=== PATIENT | female | born 1945 | race Caucasian/White ===

== ENCOUNTER 2023-04-30 18:04 | Inpatient (IN) | payer MEDICARE, BC ==
[~2023-04-30 18:04] MED LIST: IV FLUID CONTINUATION 1,000 ML IV ONE; LACTATED RINGERS 1,000 ML IV ONE
[2023-04-30] MEDS ORDERED: SODIUM CHLORIDE 0.9% 1,000 ML IV ONE (18:54)
[2023-04-30] MEDS ORDERED: KETOROLAC 15 MG/ML 1 ML VIAL IVP STA (18:54)
[2023-04-30] MEDS ORDERED: ONDANSETRON 4 MG/2 ML VIAL IVP STA (18:54)
[2023-04-30] MEDS ORDERED: FAMOTIDINE 20 MG/2 ML VIAL IV STA (18:54)
--- NOTE | 2023-04-30 18:56 | ED ---
General Adult HPI - General Chief complaint: Abdominal Pain Stated complaint: abd pain Time Seen by Provider: 04/30/23 18:25 Source: patient, RN notes reviewed Mode of arrival: ambulatory Limitations: no limitations - History of Present Illness Initial comments: 77-year-old female with a past medical history significant for CVA and hypertension presents to the emergency department the chief complaint of abdominal pain. Patient reports that her abdominal pain started at approximately 11 AM today. She describes her pain as sharp and generalized. She denies any known fevers however has felt chills on and off all day. She is complaining of accompanying symptoms of nausea and vomiting. She denies any sick contacts. She did not receive Covid informed vaccines this year. Denies chest pain, cough, palpitations, shortness of breath, melena, hematochezia, dysuria, hematuria. She reports that she is currently on plavix - Related Data Home Medications Medication Instructions Recorded Confirmed Atorvastatin [Lipitor] 40 mg PO DAILY 04/30/23 04/30/23 Cholecalciferol [Vitamin D3 (25 25 mcg PO DAILY 04/30/23 04/30/23 Mcg = 1000 Iu)] Clopidogrel [Plavix] 75 mg PO DAILY 04/30/23 04/30/23 Magnesium 250 mg PO DAILY 04/30/23 04/30/23 Multivitamins, Thera [Multivitamin 1 tab PO DAILY 04/30/23 04/30/23 (formulary)] Mcclelland-3 Fatty Acids [Mcclelland-3] 1,000 mg PO DAILY 04/30/23 04/30/23 Vitamin E (Dl,Tocopheryl Acet) 400 unit PO DAILY 04/30/23 04/30/23 [Vitamin E (400 Iu = 180 mg)] carvediloL [Coreg] 12.5 mg PO BID 04/30/23 04/30/23 ramipriL [Altace] 10 mg PO BID 04/30/23 04/30/23 Allergies Allergy/AdvReac Type Severity Reaction Status Date / Time No Known Allergies Allergy Verified 04/30/23 18:41 Review of Systems ROS Statement: Those systems with pertinent positive or pertinent negative responses have been documented in the HPI. ROS Other: All systems not noted in ROS Statement are negative. Past Medical History Past Medical History: CVA/TIA, Hypertension History of Any Multi-Drug Resistant Organisms: None Reported Past Surgical History: Hysterectomy Past Psychological History: No Psychological Hx Reported Smoking Status: Never smoker Past Alcohol Use History: None Reported Past Drug Use History: None Reported General Exam - General Exam Comments Initial Comments: General: Alert, in no acute distress Head: atraumatic normocephalic. Eyes PERRL, EOMI intact, mucous membranes moist Respiratory: Lungs clear to auscultation bilaterally Cardiovascular: Rate regular rate and rhythm Abdominal: Soft without guarding or rebound, generalized tenderness Extremities: Normal inspection with full range of motion and normal capillary refill Neuroogic: alert and oriented 3, CN II-XII intact, able to ambulate with steady gait Skin: warm dry and intact with normal color Limitations: no limitations Course Vital Signs 04/30/23 04/30/23 04/30/23 18:17 19:51 20:10 Temperature 97.7 F Pulse Rate 64 70 64 Respiratory 18 18 Rate Blood Pressure 214/95 209/106 O2 Sat by Pulse 94 L 96 Oximetry 04/30/23 04/30/23 04/30/23 20:20 20:30 20:40 Temperature Pulse Rate 68 77 74 Respiratory Rate Blood Pressure 222/121 O2 Sat by Pulse 95 Oximetry 04/30/23 04/30/23 04/30/23 20:45 21:29 21:49 Temperature Pulse Rate 69 71 Respiratory 18 16 Rate Blood Pressure 221/135 195/98 187/90 O2 Sat by Pulse 97 98 Oximetry 04/30/23 23:00 Temperature Pulse Rate Respiratory Rate Blood Pressure 146/82 O2 Sat by Pulse Oximetry - Reevaluation(s) Reevaluation #1: 04/30/23 22:32 Pt re-evaluated and updated on results. Patient agreeable with the plan for admission Reevaluation #2: 04/30/23 22:[address] Robertson who agrees and accepts the patient for admission Medical Decision Making - Medical Decision Making Was pt. sent in by a medical professional or institution (, PA, AUTOMOBILE BODY REPAIRER, urgent care, hospital, or long-term...) When possible be specific @ -[No] Did you speak to anyone other than the patient for history (EMS, parent, family, police, friend...)? What history was obtained from this source @ - Did you review nursing and triage notes (agree or disagree)? Why? @ -[I reviewed and agree with nursing and triage notes] Were old charts reviewed (outside hosp., previous admission, EMS record, old EKG, old radiological studies, urgent care reports/EKG's, long-term records)? Report findings @ -[No old charts were reviewed] Differential Diagnosis (chest pain, altered mental status, abdominal pain women, abdominal pain men, vaginal bleeding, weakness, fever, dyspnea, syncope, heada wes, dizziness, GI bleed, back pain, seizure, CVA, palpatations, mental health, musculoskeletal)? @ -[not applicable] EKG interpreted by me (3pts min.). @ -[As above] X-rays interpreted by me (1pt min.). @ -[None done] CT interpreted by me (1pt min.). @ -[None done] U/S interpreted by me (1pt. min.). @ -[None done] What testing was considered but not performed or refused? (CT, X-rays, U/S, labs)? Why? @ -[None] What meds were considered but not given or refused? Why? @ -[None] Did you discuss the management of the patient with other professionals (professionals i.e. , PA, AUTOMOBILE BODY REPAIRER, lab, RT, psych nurse, nephrology social worker, case technician, te acher, [employer] officer, returned case inspector)? Give summary @ -[No] Was smoking cessation discussed for >3mins.? @ -[No] Was critical care preformed (if so, how long)? @ -[No] Were there social determinants of health that impacted care today? How? (Homelessness, low income, unemployed, alcoholism, drug addiction, transportation, low edu. Level, literacy, decrease access to med. care, long term, re hab)? @ -[No] Was there de-escalation of care discussed even if they declined (Discuss DNR or withdrawal of care, Hospice)? DNR status @ -[No] What co-morbidities impacted this encounter? (DM, HTN, Smoking, COPD, CAD, Cancer, CVA, ARF, Chemo, Hep., AIDS, mental health diagnosis, sleep apnea, morbid obesity)? @ -[None] Was patient admitted / discharged? Hospital course, mention meds given and route, prescriptions, significant lab abnormalities, going to OR and other pertinent info. @ -Admission. This is a 77-year-old female who presents to the emergency department with abdominal pain. Patient had a thorough history and physical exam performed on the ED. Physical exam is essentially unremarkable heart rate regular rate and rhythm, lungs clear to auscultation bilaterally, abdomen with generalized abdominal tenderness. No rebound or rigidity. Patient lab work and imaging performed which revealed: Labs remarkable for WBC 9.3, hemoglobin 15.4 coagulation studies unremarkable chemistry unremarkable BUNs 16, creatinine 0.51 lactic acid 1.0 lipase 107. Urinalysis negative. Covid influenza and RSV negative. I having labs done patient complaining of abdominal pain. CT was ordered. CT reveals: Evidence of small bowel obstruction thought to be due to an internal hernia with vascular compromise of the loops of bowel with camille mesentery in bowel wall thickening. There is a pancreatic head cystic lesion. Case discussed with Dr. tovar, surgeon marionette performer who agrees and accepts the patient for admission. He recommends splinting the case for surgery this evening. I discussed the results in detail with the patient verbalized understanding and all questions were addressed. She is agreeable with the plan. Patient was given Toradol, Pepcid, Zofran and 1 L IV fluids with mild symptomatic relief. She was given morphine. Patient will be taken to the operating room in stable condition per Dr. Robertson requests. Case discussed with Dr. To, [facility] who agrees with plan of care Undiagnosed new problem with uncertain prognosis? @ -[No] Drug Therapy requiring intensive monitoring for toxicity (Heparin, Nitro, Insulin, Cardizem)? @ -[No] Were any procedures done? @ -[No] Diagnosis/symptom? @ -Small Bowel Obstruction - Internal Hernia Acute, or Chronic, or Acute on Chronic? @ -Acute Uncomplicated (without systemic symptoms) or Complicated (systemic symptoms)? @ -complicated Side effects of treatment? @ -[No] Exacerbation, Progression, or Severe Exacerbation? @ -[No] Poses a threat to life or bodily function? How? (Chest pain, [place], [place], pneumonia, PE, COPD, DKA, ARF, appy, cholecystitis, CVA, Diverticulitis, Homicidal, Suicidal, threat to staff... and all critical care pts) @ -high likelihood incuding and ischemic bowel - Lab Data Result diagrams: 05/02/23 07:21 05/02/23 07:21 Lab Results 06/07/1504/30/23 04/30/23 Range/Units 18:58 18:58 18:58 WBC 9.3 (3.8-10.6) k/uL RBC 4.92 (3.80-5.40) m/uL Hgb 15.4 (11.4-16.0) gm/dL Hct 45.3 (34.0-46.0) % MCV 92.1 (80.0-100.0) fL MCH 31.3 (25.0-35.0) pg MCHC 33.9 (31.0-37.0) g/dL RDW 12.3 (11.5-15.5) % Plt Count 182 (150-450) k/uL MPV 9.0 Neutrophils % 90 % Lymphocytes % 6 % Monocytes % 3 % Eosinophils % 0 % Basophils % 0 % Neutrophils # 8.4 H (1.3-7.7) k/uL Lymphocytes # 0.6 L (1.0-4.8) k/uL Monocytes # 0.3 (0-1.0) k/uL Eosinophils # 0.0 (0-0.7) k/uL Basophils # 0.0 (0-0.2) k/uL PT (9.0-12.0) sec INR (<1.2) APTT (22.0-30.0) sec Sodium 138 (137-145) mmol/L Potassium 4.3 (3.5-5.1) mmol/L Chloride 103 (98-107) mmol/L Carbon Dioxide 26 (22-30) mmol/L Anion Gap 9 mmol/L BUN 16 (7-17) mg/dL Creatinine 0.51 L (0.52-1.04) mg/dL Est GFR (CKD-EPI)AfAm >90 (>60 ml/min/1.73 sqM) Est GFR (CKD-EPI)NonAf >90 (>60 ml/min/1.73 sqM) Glucose 138 H (74-99) mg/dL Plasma Lactic Acid Ezequiel 1.0 (0.7-2.0) mmol/L Calcium 9.9 (8.4-10.2) mg/dL Total Bilirubin 2.6 H (0.2-1.3) mg/dL AST 38 H (14-36) U/L ALT 27 (4-34) U/L Alkaline Phosphatase 108 (38-126) U/L Total Protein 7.7 (6.3-8.2) g/dL Albumin 4.5 (3.5-5.0) g/dL Lipase (23-300) U/L Urine Color Urine Appearance (Clear) Urine pH (5.0-8.0) Ur Specific [place] (1.001-1.035) Urine Protein (Negative) Urine Glucose (UA) (Negative) Urine Ketones (Negative) Urine Blood (Negative) Urine Nitrite (Negative) Urine Bilirubin (Negative) Urine Urobilinogen (<2.0) mg/dL Ur Leukocyte Esterase (Negative) Urine RBC (0-5) /hpf Urine WBC (0-5) /hpf Ur Squamous Epith Cells (0-4) /hpf Urine Mucus (None) /hpf Influenza Type A (PCR) (Not Detectd) Influenza Type B (PCR) (Not Detectd) RSV (PCR) (Not Detectd) SARS-CoV-2 (PCR) (Not Detectd) 04/30/23 04/30/23 04/30/23 Range/Units 18:58 18:58 20:07 WBC (3.8-10.6) k/uL RBC (3.80-5.40) m/uL Hgb (11.4-16.0) gm/dL Hct (34.0-46.0) % MCV (80.0-100.0) fL MCH (25.0-35.0) pg MCHC (31.0-37.0) g/dL RDW (11.5-15.5) % Plt Count (150-450) k/uL MPV Neutrophils % % Lymphocytes % % Monocytes % % Eosinophils % % Basophils % % Neutrophils # (1.3-7.7) k/uL Lymphocytes # (1.0-4.8) k/uL Monocytes # (0-1.0) k/uL Eosinophils # (0-0.7) k/uL Basophils # (0-0.2) k/uL PT 10.3 (9.0-12.0) sec INR 1.0 (<1.2) APTT 22.8 (22.0-30.0) sec Sodium (137-145) mmol/L Potassium (3.5-5.1) mmol/L Chloride (98-107) mmol/L Carbon Dioxide (22-30) mmol/L Anion Gap mmol/L BUN (7-17) mg/dL Creatinine (0.52-1.04) mg/dL Est GFR (CKD-EPI)AfAm (>60 ml/min/1.73 sqM) Est GFR (CKD-EPI)NonAf (>60 ml/min/1.73 sqM) Glucose (74-99) mg/dL Plasma Lactic Acid Ezequiel (0.7-2.0) mmol/L Calcium (8.4-10.2) mg/dL Total Bilirubin (0.2-1.3) mg/dL AST (14-36) U/L ALT (4-34) U/L Alkaline Phosphatase (38-126) U/L Total Protein (6.3-8.2) g/dL Albumin (3.5-5.0) g/dL Lipase 107 (23-300) U/L Urine Color Light Yellow Urine Appearance Clear (Clear) Urine pH 7.0 (5.0-8.0) Ur Specific [place] 1.013 (1.001-1.035) Urine Protein 1+ H (Negative) Urine Glucose (UA) Negative (Negative) Urine Ketones 2+ H (Negative) Urine Blood Moderate H (Negative) Urine Nitrite Negative (Negative) Urine Bilirubin Negative (Negative) Urine Urobilinogen <2.0 (<2.0) mg/dL Ur Leukocyte Esterase Negative (Negative) Urine RBC 36 H (0-5) /hpf Urine WBC 5 (0-5) /hpf Ur Squamous Epith Cells <1 (0-4) /hpf Urine Mucus Rare H (None) /hpf Influenza Type A (PCR) (Not Detectd) Influenza Type B (PCR) (Not Detectd) RSV (PCR) (Not Detectd) SARS-CoV-2 (PCR) (Not Detectd) 04/30/23 Range/Units 20:07 WBC (3.8-10.6) k/uL RBC (3.80-5.40) m/uL Hgb (11.4-16.0) gm/dL Hct (34.0-46.0) % MCV (80.0-100.0) fL MCH (25.0-35.0) pg MCHC (31.0-37.0) g/dL RDW (11.5-15.5) % Plt Count (150-450) k/uL MPV Neutrophils % % Lymphocytes % % Monocytes % % Eosinophils % % Basophils % % Neutrophils # (1.3-7.7) k/uL Lymphocytes # (1.0-4.8) k/uL Monocytes # (0-1.0) k/uL Eosinophils # (0-0.7) k/uL Basophils # (0-0.2) k/uL PT (9.0-12.0) sec INR (<1.2) APTT (22.0-30.0) sec Sodium (137-145) mmol/L Potassium (3.5-5.1) mmol/L Chloride (98-107) mmol/L Carbon Dioxide (22-30) mmol/L Anion Gap mmol/L BUN (7-17) mg/dL Creatinine (0.52-1.04) mg/dL Est GFR (CKD-EPI)AfAm (>60 ml/min/1.73 sqM) Est GFR (CKD-EPI)NonAf (>60 ml/min/1.73 sqM) Glucose (74-99) mg/dL Plasma Lactic Acid Ezequiel (0.7-2.0) mmol/L Calcium (8.4-10.2) mg/dL Total Bilirubin (0.2-1.3) mg/dL AST (14-36) U/L ALT (4-34) U/L Alkaline Phosphatase (38-126) U/L Total Protein (6.3-8.2) g/dL Albumin (3.5-5.0) g/dL Lipase (23-300) U/L Urine Color Urine Appearance (Clear) Urine pH (5.0-8.0) Ur Specific [place] (1.001-1.035) Urine Protein (Negative) Urine Glucose (UA) (Negative) Urine Ketones (Negative) Urine Blood (Negative) Urine Nitrite (Negative) Urine Bilirubin (Negative) Urine Urobilinogen (<2.0) mg/dL Ur Leukocyte Esterase (Negative) Urine RBC (0-5) /hpf Urine WBC (0-5) /hpf Ur Squamous Epith Cells (0-4) /hpf Urine Mucus (None) /hpf Influenza Type A (PCR) Not Detected (Not Detectd) Influenza Type B (PCR) Not Detected (Not Detectd) RSV (PCR) Not Detected (Not Detectd) SARS-CoV-2 (PCR) Not Detected (Not Detectd) Disposition Clinical Impression: Abdominal pain, Small bowel obstruction, Internal hernia Disposition: ADMITTED IP TO THIS HOSP Condition: Fair Is patient prescribed a controlled substance at d/c from ED?: No Time of Disposition: 23:00
[2023-04-30 19:10] LABS: Basophils % (A) 0 %; Eosinophils % (A) 0 %; HCT 45.3 % (34.0-46.0); HGB 15.4 gm/dL (11.4-16.0); Lymphocytes # (A) 0.6 k/uL (1.0-4.8); Lymphocytes % (A) 6 %; MCH 31.3 pg (25.0-35.0); MCHC 33.9 g/dL (31.0-37.0); MCV 92.1 fL (80.0-100.0); Monocytes # (A) 0.3 k/uL (0-1.0); Monocytes % (A) 3 %; Neutrophils # (A) 8.4 k/uL (1.3-7.7); Neutrophils % (A) 90 %; Platelet Count 182 k/uL (150-450); RBC 4.92 m/uL (3.80-5.40); RDW 12.3 % (11.5-15.5); WBC 9.3 k/uL (3.8-10.6)
[2023-04-30 19:20] LABS: ALT 27 U/L (4-34); AST 38 U/L (14-36); African American GFR (CKD) >90 (>60 ml/min/1.73 sqM); Albumin 4.5 g/dL (3.5-5.0); Alkaline Phosphatase 108 U/L (38-126); Anion Gap 9 mmol/L; Blood Urea Nitrogen 16 mg/dL (7-17); Calcium 9.9 mg/dL (8.4-10.2); Carbon Dioxide 26 mmol/L (22-30); Chloride 103 mmol/L (98-107); Non-African American GFR(CKD) >90 (>60 ml/min/1.73 sqM); Potassium 4.3 mmol/L (3.5-5.1); Sodium 138 mmol/L (137-145); Total Bilirubin 2.6 mg/dL (0.2-1.3); Total Protein 7.7 g/dL (6.3-8.2)
[2023-04-30 19:40] LABS: Glucose 138 mg/dL (74-99)
[2023-04-30] MEDS ORDERED: METOCLOPRAMIDE 5 MG/ML 2 ML VIAL IVP STA (20:31)
[2023-04-30 20:32] LABS: Appearance,Urine Clear (Clear); Bilirubin,Urine Negative (Negative); Blood,Urine Moderate (Negative); Color,Urine Light Yellow; Glucose,Urine (UA) Negative (Negative); Ketones,Urine 2+ (Negative); Leukocyte Esterase,Urine Negative (Negative); Mucus,Urine Rare /hpf; Nitrite,Urine Negative (Negative); Protein,Urine 1+ (Negative); RBC,Urine 36 /hpf (0-5); Specific Gravity,Urine 1.013 (1.001-1.035); Squamous Epithelial Cell,Urine <1 /hpf (0-4); Urobilinogen,Urine <2.0 mg/dL (<2.0); WBC,Urine 5 /hpf (0-5)
[2023-04-30] MEDS ORDERED: hydrALAZINE HCL 20 MG/ML 1 ML VIAL IVP STA ×2 (20:46→21:38)
--- NOTE | 2023-04-30 21:48 | CT ---
EXAMINATION TYPE: CT abdomen pelvis w con CT DLP: 945.2 mGycm, Automated exposure control for dose reduction was used. DATE OF EXAM: 04/30/2023 9:23 PM COMPARISON: None CLINICAL INDICATION:Female, 77 years old with history of abdominal pain; ABDOMINAL PAIN, N AND V TECHNIQUE: Axial CT of the abdomen and pelvis. Sagittal and coronal reformats were created on a [employer] workstation. Contrast used:100 mL of Isovue 300 with IV Contrast, Oral contrast used: without Oral Contrast FINDINGS: LOWER CHEST: Unremarkable ABDOMEN LIVER: Scattered hepatic cysts. GALLBLADDER AND BILE DUCTS: Unremarkable. PANCREAS: Pancreatic head cystic lesion measuring 23 x 18 mm. SPLEEN: Unremarkable. ADRENAL GLANDS: Unremarkable. KIDNEYS AND URETERS: No evidence of hydronephrosis or renal calculus. The ureters are unremarkable. Bilateral parotid pelvic and cortical cysts. Nonobstructing right calculi measuring up to 10 mm. No l eft renal calculi visualized. PELVIS BLADDER: Unremarkable REPRODUCTIVE: Unremarkable. ABDOMEN & PELVIS STOMACH AND BOWEL: Small bowel dilation with stacking loops of bowel throughout the abdomen. There is a camille mesentery in the right lower quadrant. One loop of small bowel does demonstrate circumferent ial thickened mejia measuring up to 5 mm in the pelvis. Findings of wall thickening Camille mesentery a re compatible with vascular compromise. Dilated loops of small bowel measuring up to 3.2 cm. Scattered colonic diverticula. PERITONEUM/RETROPERITONEUM: No evidence of pneumoperitoneum or free fluid. VASCULATURE: No evidence of aortic aneurysm. MUSCULOSKELETAL: No acute osseous abnormalities LYMPH NODES: No gross evidence for lymphadenopathy. SOFT TISSUE/ABDOMINAL WALL: Unremarkable IMPRESSION: 1. Findings compatible with small bowel obstruction thought to be due to internal hernia there is va scular compromise of the loops of bowel with camille mesentery and bowel wall thickening. Surgical cons ultation recommended. 2. Pancreatic head cystic lesion. This can be further characterized with MR MRCP. Could represent si debranch intraductal papillary mucinous neoplasm versus sequela prior pancreatitis versus other etiol ogies such as serous cystadenoma.
[2023-04-30] MEDS ORDERED: MORPHINE SULFATE 2 MG/ML SYRINGE IVP ONE (22:29)
[2023-04-30] MEDS ORDERED: MORPHINE SULFATE 2 MG/ML SYRINGE IV PRN (22:34)
[2023-04-30] MEDS ORDERED: NALOXONE 0.4 MG/ML 1 ML VIAL IV PRN (22:34)
[2023-04-30] MEDS ORDERED: SODIUM CHLORIDE 0.9% 1,000 ML IV SCH (22:45)
[2023-04-30 23:19] LABS: Partial Thromboplastin Time 22.8 sec (22.0-30.0); Prothrombin Time 10.3 sec (9.0-12.0)
--- NOTE | 2023-04-30 23:54 | P.GSHP ---
History of Present Illness H&P Date: 04/30/23 Chief Complaint: Small bowel obstruction 77-year-old female comes to the ER this afternoon with complaints of abdominal pain. This began around 11 AM this morning. No history of similar events. This is associated with episodes of nausea, cramps, and vomiting. Pain has not been relieved with IV narcotics. Seems to be coming in waves. Patient has a surgical history including hysterectomy. She is on Plavix. CAT scan abdomen and pelvis was obtained which demonstrates small bowel obstruction with edema of the small bowel mesentery extending into the right lower quadrant suspicious for internal herniation with vascular compromise. Lactic acid normal. She is not t achycardic. - Review of Systems Comment: The patient denies any acute changes in vision or hearing, no dysphagia or odynophagia, no chest pain or shortness of breath, no dysuria or hematuria, no headache, no runny nose, no rectal bleeding or melena, no unexplained weight loss Past Medical History Past Medical History: CVA/TIA, Hypertension History of Any Multi-Drug Resistant Organisms: None Reported Past Surgical History: Hysterectomy Past Psychological History: No Psychological Hx Reported Smoking Status: Never smoker Past Alcohol Use History: None Reported Past Drug Use History: None Reported Medications and Allergies Home Medications Medication Instructions Recorded Confirmed Type Atorvastatin [Lipitor] 40 mg PO DAILY 04/30/23 04/30/23 History Cholecalciferol [Vitamin D3 (25 25 mcg PO DAILY 04/30/23 04/30/23 History Mcg = 1000 Iu)] Clopidogrel [Plavix] 75 mg PO DAILY 04/30/23 04/30/23 History Magnesium 250 mg PO DAILY 04/30/23 04/30/23 History Multivitamins, Thera [Multivitamin 1 tab PO DAILY 04/30/23 04/30/23 History (formulary)] Waco-3 Fatty Acids [[place]-3] 1,000 mg PO DAILY 04/30/23 04/30/23 History Vitamin E (Dl,Tocopheryl Acet) 400 unit PO DAILY 04/30/23 04/30/23 History [Vitamin E (400 Iu = 180 mg)] carvediloL [Coreg] 12.5 mg PO BID 04/30/23 04/30/23 History ramipriL [Altace] 10 mg PO BID 04/30/23 04/30/23 History Allergies Allergy/AdvReac Type Severity Reaction Status Date / Time No Known Allergies Allergy Verified 04/30/23 18:41 Surgical - Exam Vital Signs Temp Pulse Resp 97.7 F 64 18 04/30/23 18:17 04/30/23 18:17 04/30/23 18:17 Physical exam: General: Well-developed, well-nourished HEENT: Normocephalic, sclerae nonicteric Abdomen: Mildly distended, mild to moderate diffuse tenderness Extremities: No edema Neuro: Alert and oriented Results - Labs 04/30/23 18:58 04/30/23 18:58 Abnormal Lab Results - Last 24 Hours (Table) 04/30/23 04/30/23 04/30/23 Range/Units 18:58 18:58 20:07 Neutrophils # 8.4 H (1.3-7.7) k/uL Lymphocytes # 0.6 L (1.0-4.8) k/uL Creatinine 0.51 L (0.52-1.04) mg/dL Glucose 138 H (74-99) mg/dL Total Bilirubin 2.6 H (0.2-1.3) mg/dL AST 38 H (14-36) U/L Urine Protein 1+ H (Negative) Urine Ketones 2+ H (Negative) Urine Blood Moderate H (Negative) Urine RBC 36 H (0-5) /hpf Urine Mucus Rare H (None) /hpf Diabetes panel 04/30/23 Range/Units 18:58 Sodium 138 (137-145) mmol/L Potassium 4.3 (3.5-5.1) mmol/L Chloride 103 (98-107) mmol/L Carbon Dioxide 26 (22-30) mmol/L BUN 16 (7-17) mg/dL Creatinine 0.51 L (0.52-1.04) mg/dL Glucose 138 H (74-99) mg/dL Calcium 9.9 (8.4-10.2) mg/dL AST 38 H (14-36) U/L ALT 27 (4-34) U/L Alkaline Phosphatase 108 (38-126) U/L Total Protein 7.7 (6.3-8.2) g/dL Albumin 4.5 (3.5-5.0) g/dL Calcium panel 04/30/23 Range/Units 18:58 Calcium 9.9 (8.4-10.2) mg/dL Albumin 4.5 (3.5-5.0) g/dL Pituitary panel 04/30/23 Range/Units 18:58 Sodium 138 (137-145) mmol/L Potassium 4.3 (3.5-5.1) mmol/L Chloride 103 (98-107) mmol/L Carbon Dioxide 26 (22-30) mmol/L BUN 16 (7-17) mg/dL Creatinine 0.51 L (0.52-1.04) mg/dL Glucose 138 H (74-99) mg/dL Calcium 9.9 (8.4-10.2) mg/dL Adrenal panel 04/30/23 Range/Units 18:58 Sodium 138 (137-145) mmol/L Potassium 4.3 (3.5-5.1) mmol/L Chloride 103 (98-107) mmol/L Carbon Dioxide 26 (22-30) mmol/L BUN 16 (7-17) mg/dL Creatinine 0.51 L (0.52-1.04) mg/dL Glucose 138 H (74-99) mg/dL Calcium 9.9 (8.4-10.2) mg/dL Total Bilirubin 2.6 H (0.2-1.3) mg/dL AST 38 H (14-36) U/L ALT 27 (4-34) U/L Alkaline Phosphatase 108 (38-126) U/L Total Protein 7.7 (6.3-8.2) g/dL Albumin 4.5 (3.5-5.0) g/dL Assessment and Plan (1) Small bowel obstruction Narrative/Plan: 77-year-old female with small bowel obstruction likely related to internal hernia from previous surgical adhesions. Clinical scenario discussed in detail with the patient and her . Favor urgent laparotomy given the CAT scan findings. We'll proceed with exporter laparotomy, possible bowel resection at this time. Risks of bleeding, infection, aspiration, possible need for bowel resection, possible but unlikely need for ostomy, leak, abscess, hernia, wound infection, anesthesia related complications. She understands and wishes to proceed. Current Visit: Yes Status: Acute Code(s): K56.609 - UNSP INTESTNL OBST, UNSP TO PARTIAL VERSUS COMPLETE OBST SNOMED Code(s): 338553281
[2023-04-30] MEDS ORDERED: MIDAZOLAM 2 MG/2 ML VIAL IVP ONE (23:55)
[2023-05-01] MEDS ORDERED: ROCURONIUM 10 MG/ML (5 ML VIAL) IV ONE (00:01)
[2023-05-01] MEDS ORDERED: SODIUM CHLORIDE 0.9% 100 ML BAG ONE (00:01)
[2023-05-01] MEDS ORDERED: SUCCINYLCHOLINE CHLORIDE 200 MG/10 ML VIAL IV ONE (00:01)
[2023-05-01] MEDS ORDERED: PROPOFOL 10 MG/ML 20 ML VIAL IV ONE (00:01)
[2023-05-01] MEDS ORDERED: MIDAZOLAM 2 MG/2 ML VIAL ONE (00:01)
[2023-05-01] MEDS ORDERED: fentaNYL (PF) 50 MCG/ML 2 ML AMP ONE (00:01)
[2023-05-01] MEDS ORDERED: PHENYLEPHRINE-0.9% NACL SYG 1,000 MCG/10 ML SYRINGE ONE (00:01)
[2023-05-01] MEDS ORDERED: LIDOCAINE 2% INJ 20 MG/ML (2 ML VIAL) ONE (00:01)
[2023-05-01] MEDS ORDERED: ceFAZolin 1,000 MG VIAL ONE (00:01)
[2023-05-01] MEDS ORDERED: metroNIDAZOLE-NS PMX 500 MG in SALINE 1 100ML.BAG IVPB STA (00:33)
[2023-05-01] MEDS ORDERED: HYDROmorphone PCA 10 MG/50 ML BAG IV PRN (01:25)
[2023-05-01] MEDS ORDERED: ONDANSETRON 4 MG/2 ML VIAL IVP PRN (01:25)
[2023-05-01] MEDS ORDERED: HYDROmorphone 0.5 MG/0.5 ML SYRINGE IVP PRN (01:25)
[2023-05-01] MEDS ORDERED: HYDROmorphone 1 MG/ML 1 ML SYRINGE IVP PRN (01:25)
--- NOTE | 2023-05-01 01:33 | P.OP ---
Date of Procedure: 05/01/23 Procedure(s) Performed: PREOPERATIVE DIAGNOSIS: Small bowel obstruction POSTOPERATIVE DIAGNOSIS: Small bowel obstruction with ischemic small bowel secondary to internal herniation and adhesive band PROCEDURE: Exploratory laparotomy, lysis of adhesions, small bowel resection SURGEON: Marcelo EBL: 50 mL ANESTHESIA: General COMPLICATIONS: None OPERATIVE PROCEDURE: Patient placed on the operative table in the supine position. Preoperative Simons and nasogastric tube were placed. Midline incision made using scalpel. Dissection through the subcutaneous tissues took place using electrocautery. The fascia was divided along with the pre-peroneal fat as well. A large amount of [place] colored fluid was evacuated. The Axel retractor was utilized. The small bowel was inspected. There was a portion of proximal ileum where the bowel had evidence of nonreversible ischemia. There was an adhesive band between the mesentery of the bowel and the antimesenteric portion of the ascending colon. The small bowel was inspected. We had a length of small bowel that was ischemic and required resection measuring about 2 feet in length. The bowel contents were milked back to the stomach and evacuated. The bowel was divided proximal to the transition point using a linear 75 stapler. The bowel was then divided distal to the obstruction using a linear 75 stapler as well. A small opening in the antimesenteric portion of the staple line distally was made. The bowel here was asked to quite thin and as I was advancing the thinner portion of the linear stapler I could palpate and visualize a likely benign appearing tumor measuring about 9 mm within the wall of the small bowel. I decided to take an additional length of small bowel measuring about 6 inches. We were now in a more properly diameter portion of the ileum. The mesentery was divided using LigaSure. A [id number] anastomosis took place using a linear 75 stapler and the defect was closed using a TX 60 device. The TX 60 stapler line was imbricated using 3-0 GI silk sutures. A 3-0 GI silk crotch stitch was also placed. The patient had evidence of tattooing in the ascending colon. Per the family she had a colonoscopy approximately 2 months ago for a large polyp was removed and clips were deployed along with tattooing. This appeared to be the site where the adhesive band was present. The colon wall was inspected. There was no evidence of any ischemic changes there or perforation. There was mild induration at the site likely from healing from the recent polypectomy. No gross malignancy was seen. The abdomen was irrigated with 3 L of saline. We then reapproximated the fascia using 2 separate double-stranded #1 PDS sutures. The subcutaneous tissues were closed using 3-0 Vicryl sutures and the skin using rosanna. Sterile dressings were applied. DISPOSITION: Stable to recovery room
[2023-05-01] MEDS: ACETAMINOPHEN IV (For NPO) 1,000 MG in EMPTY BAG 1 BAG IVPB SCH ×4 (02:37→20:32)
[2023-05-01] MEDS: D5-0.45% NACL WITH KCL 20MEQ/L 1,000 ML IV SCH ×3 (02:38→17:08)
[2023-05-01] MEDS: HEPARIN SODIUM,PORCINE/PF 5,000 UNIT/0.5 ML SYRINGE SQ SCH ×2 (08:50→15:09)
[2023-05-01] MEDS: PIPERACILLIN-TAZOBACTAM 3.375 GM in SODIUM CHLORIDE 0.9% 100 ML IVPB SCH ×2 (08:52→15:09)
[2023-05-01] MEDS: PANTOPRAZOLE 40 MG/10 ML VIAL IV SCH (08:53)
[2023-05-01] MEDS ORDERED: BENZOCAINE SPRAY 1 CAN MUCOUS MEM PRN (10:52)
--- NOTE | 2023-05-01 12:26 | P.PN ---
Subjective Progress Note Date: 05/01/23 Principal diagnosis: Small bowel obstruction Patient doing better today. Says her pain is improved. There has been no nasogastric tube output. No flatus. No nausea. Pain is well-controlled. Says her pain from preop is mostly gone. Objective - Vital Signs Vital signs: Vital Signs Temp 98.8 F 05/01/23 07:46 Pulse 73 05/01/23 07:46 Resp 16 05/01/23 07:46 BP 137/68 05/01/23 07:46 Pulse Ox 93 L 05/01/23 07:46 FiO2 Intake & Output 04/30/23 05/01/23 05/01/23 18:59 06:59 18:59 Output Total 0 700 Balance 0 -700 Weight 74.843 kg 74.843 kg Output: Urine 0 700 Other: Voiding Method Indwelling Catheter Indwelling Catheter - Exam Abdomen: Soft, nondistended, mild tenderness, dressing clean and dry - Labs CBC & Chem 7: 04/30/23 18:58 04/30/23 18:58 Labs: Abnormal Lab Results - Last 24 Hours (Table) 04/30/23 04/30/23 04/30/23 Range/Units 18:58 18:58 20:07 Neutrophils # 8.4 H (1.3-7.7) k/uL Lymphocytes # 0.6 L (1.0-4.8) k/uL Creatinine 0.51 L (0.52-1.04) mg/dL Glucose 138 H (74-99) mg/dL Total Bilirubin 2.6 H (0.2-1.3) mg/dL AST 38 H (14-36) U/L Urine Protein 1+ H (Negative) Urine Ketones 2+ H (Negative) Urine Blood Moderate H (Negative) Urine RBC 36 H (0-5) /hpf Urine Mucus Rare H (None) /hpf Assessment and Plan (1) Small bowel obstruction Narrative/Plan: Patient doing well today. We'll remove nasogastric tube as there is no output. Keep nothing by mouth. Ambulate. Remove Simons. Decrease IV fluid rate. Continue antibiotics. Check labs tomorrow morning. Current Visit: Yes Status: Acute Code(s): K56.609 - UNSP INTESTNL OBST, UNSP TO PARTIAL VERSUS COMPLETE OBST SNOMED Code(s): 151808165
--- NOTE | 2023-05-01 13:00 | P.CONS ---
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, history of carotid artery stenosis presented to the emergency department with complaints of abdominal pain * Patient was seen by general surgery and had CT abdomen and pelvis done and of admission which showed findings compatible with small bowel obstruction, pancreatic head cystic lesion was noted as well * Blood was obtained at the time of admission included CBC which was essentially normal, serum chemistry obtained which showed normal electrolyte mild elevation of AST * Secondary to worsening abdominal pain patient was taken to surgery and had small bowel obstruction with ischemic small bowel secondary to internal herniation and a adhesive band * Medicine team was was consulted for postoperative management * Patient had a nasogastric tube in place which will be managed by general surgery, was advanced Tolerated per general surgery discretion * Post procedure patient receiving IV Zosyn to be continued will likely discontinue antibiotics if remains afebrile Review of Systems REVIEW OF SYSTEMS: Abdominal pain, nausea vomiting resolved CONSTITUTIONAL: No fever, no malaise, no fatigue. HEENT: No recent visual problems or hearing problems. Denied any sore throat. CARDIOVASCULAR: No chest pain, orthopnea, PND, no palpitations, no syncope. PULMONARY: No shortness of breath, no cough, no hemoptysis. GASTROINTESTINAL: Abdominal pain, nausea vomiting resolved NEUROLOGICAL: No headaches, no weakness, no numbness. HEMATOLOGICAL: Denies any bleeding or petechiae. GENITOURINARY: Denies any burning micturition, frequency, or urgency. MUSCULOSKELETAL/RHEUMATOLOGICAL: Denies any joint pain, swelling, or any muscle pain. ENDOCRINE: Denies any polyuria or polydipsia. Past Medical History Past Medical History: CVA/TIA, Hypertension History of Any Multi-Drug Resistant Organisms: None Reported Past Surgical History: Hysterectomy Additional Past Surgical History / Comment(s): hemrrhoidectomy, lumpectomy, surgical stent in carotic artery Past Anesthesia/Blood Transfusion Reactions: No Reported Reaction Past Psychological History: No Psychological Hx Reported Smoking Status: Former smoker Past Alcohol Use History: None Reported Past Drug Use History: None Reported Medications and Allergies Home Medications Medication Instructions Recorded Confirmed Type Atorvastatin [Lipitor] 40 mg PO DAILY 04/30/23 04/30/23 History Cholecalciferol [Vitamin D3 (25 25 mcg PO DAILY 04/30/23 04/30/23 History Mcg = 1000 Iu)] Clopidogrel [Plavix] 75 mg PO DAILY 04/30/23 04/30/23 History Magnesium 250 mg PO DAILY 04/30/23 04/30/23 History Multivitamins, Thera [Multivitamin 1 tab PO DAILY 04/30/23 04/30/23 History (formulary)] [place]-3 Fatty Acids [[place]-3] 1,000 mg PO DAILY 04/30/23 04/30/23 History Vitamin E (Dl,Tocopheryl Acet) 400 unit PO DAILY 04/30/23 04/30/23 History [Vitamin E (400 Iu = 180 mg)] carvediloL [Coreg] 12.5 mg PO BID 04/30/23 04/30/23 History ramipriL [Altace] 10 mg PO BID 04/30/23 04/30/23 History Allergies Allergy/AdvReac Type Severity Reaction Status Date / Time No Known Allergies Allergy Verified 04/30/23 18:41 Physical Exam Vitals: Vital Signs Temp Pulse Pulse Pulse Resp BP BP 05/01/23 07:46 98.8 F 73 16 137/68 05/01/23 01:50 97.6 F 77 16 151/83 05/01/23 01:35 79 16 160/72 05/01/23 01:27 05/01/23 01:20 98 F 77 16 167/80 04/30/23 23:00 146/82 04/30/23 21:49 187/90 04/30/23 21:29 71 16 195/98 04/30/23 20:45 69 18 221/135 04/30/23 20:40 74 222/121 04/30/23 20:30 77 04/30/23 20:20 68 04/30/23 20:10 64 209/106 04/30/23 19:51 70 18 214/95 04/30/23 18:17 97.7 F 64 18 Pulse Ox 05/01/23 07:46 93 L 05/01/23 01:50 94 L 05/01/23 01:35 93 L 05/01/23 01:27 94 L 05/01/23 01:20 97 04/30/23 23:00 04/30/23 21:49 04/30/23 21:29 98 04/30/23 20:45 97 04/30/23 20:40 04/30/23 20:30 04/30/23 20:20 95 04/30/23 20:10 96 04/30/23 19:51 94 L 04/30/23 18:17 Intake and Output 04/30/23 05/01/23 05/01/23 22:59 06:59 14:59 Output Total 0 700 Balance 0 -700 Output: Urine 0 700 Other: Voiding Method Indwelling Catheter Indwelling Catheter Weight 74.843 kg 74.843 kg PHYSICAL EXAMINATION: GENERAL: The patient is alert and oriented x3, not in any acute distress. Well developed, well nourished. Nasal gastric tube in place HEENT: Pupils are round and equally reacting to light. EOMI. No scleral icterus. No conjunctival pallor. Normocephalic, atraumatic. No pharyngeal erythema. No thyromegaly. CARDIOVASCULAR: S1 and S2 present. No murmurs, rubs, or gallops. PULMONARY: Chest is clear to auscultation, no wheezing or crackles. ABDOMEN: Soft, nontender, status post laparotomy incision bandage MUSCULOSKELETAL: No joint swelling or deformity. EXTREMITIES: No cyanosis, clubbing, or pedal edema. NEUROLOGICAL: Gross neurological examination did not reveal any focal deficits. SKIN: No rashes. Results CBC & Chem 7: 04/30/23 18:58 04/30/23 18:58 Labs: Abnormal Lab Results - Last 24 Hours (Table) 04/30/23 04/30/23 04/30/23 Range/Units 18:58 18:58 20:07 Neutrophils # 8.4 H (1.3-7.7) k/uL Lymphocytes # 0.6 L (1.0-4.8) k/uL Creatinine 0.51 L (0.52-1.04) mg/dL Glucose 138 H (74-99) mg/dL Total Bilirubin 2.6 H (0.2-1.3) mg/dL AST 38 H (14-36) U/L Urine Protein 1+ H (Negative) Urine Ketones 2+ H (Negative) Urine Blood Moderate H (Negative) Urine RBC 36 H (0-5) /hpf Urine Mucus Rare H (None) /hpf Assessment and Plan Assessment: Assessment and plan * Small bowel obstruction status post exploratory laparotomy * 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 * carotid artery disease * Hypertension * Hyperlipidemia * In regards to bowel obstruction managed by general surgery status post surgery NG tube in place, diet and weight loss per general surgery discretion, postprocedure continue Zosyn however discontinue if afebrile when in the next 24-48 hours * In regards to history of stroke patient on Plavix at home which is on hold while nothing by mouth once cleared by general surgery Plavix and with his * In regards to hypertension and the ramipril and Coreg on hold while nothing by mouth, continue when necessary IV hydralazine * In regards to her dyslipidemia Lipitor on hold * CODE STATUS is full code Time with Patient: Greater than 30
[2023-05-01] MEDS: hydrALAZINE HCL 20 MG/ML 1 ML VIAL IVP PRN (20:32)
[2023-05-02] MEDS: PIPERACILLIN-TAZOBACTAM 3.375 GM in SODIUM CHLORIDE 0.9% 100 ML IVPB SCH ×3 (01:16→16:04)
[2023-05-02] MEDS: HEPARIN SODIUM,PORCINE/PF 5,000 UNIT/0.5 ML SYRINGE SQ SCH ×3 (01:17→16:04)
[2023-05-02] MEDS: ACETAMINOPHEN IV (For NPO) 1,000 MG in EMPTY BAG 1 BAG IVPB SCH ×4 (01:19→20:39)
[2023-05-02] MEDS: D5-0.45% NACL WITH KCL 20MEQ/L 1,000 ML IV SCH ×3 (01:22→22:39)
[2023-05-02] MEDS: hydrALAZINE HCL 20 MG/ML 1 ML VIAL IVP PRN ×3 (06:51→20:47)
--- NOTE | 2023-05-02 07:05 | P.PN ---
Progress Note - Text Progress Note Date: 05/02/23 Patient resting comfortably in her bed. She's had no significant bowel function. On exam vital signs appear stable. Abdomen is soft. Incisions clean dry tach. Status post exploratory laparotomy for internal hernia with bowel stimulation and small bowel resection. Patient will continue to receive supportive care. She will have her diet advanced once her bowel function returns.
[2023-05-02 07:57] LABS: Basophils % (A) 0 %; Eosinophils % (A) 0 %; HCT 42.7 % (34.0-46.0); Lymphocytes % (A) 10 %; MCH 30.6 pg (25.0-35.0); MCHC 32.7 g/dL (31.0-37.0); MCV 93.5 fL (80.0-100.0); Mean Platelet Volume 9.2; Monocytes # (A) 0.5 k/uL (0-1.0); Monocytes % (A) 5 %; Neutrophils # (A) 7.8 k/uL (1.3-7.7); Neutrophils % (A) 84 %; Platelet Count 173 k/uL (150-450); RBC 4.56 m/uL (3.80-5.40); RDW 13.1 % (11.5-15.5); WBC 9.3 k/uL (3.8-10.6)
[2023-05-02] MEDS: PANTOPRAZOLE 40 MG/10 ML VIAL IV SCH (08:00)
[2023-05-02 08:12] LABS: ALT 20 U/L (4-34); AST 27 U/L (14-36); African American GFR (CKD) >90 (>60 ml/min/1.73 sqM); Albumin 3.1 g/dL (3.5-5.0); Albumin/Globulin Ratio 1.2; Alkaline Phosphatase 75 U/L (38-126); Anion Gap 6 mmol/L; Blood Urea Nitrogen 10 mg/dL (7-17); Calcium 8.1 mg/dL (8.4-10.2); Carbon Dioxide 23 mmol/L (22-30); Chloride 108 mmol/L (98-107); Globulin 2.6 g/dL; Glucose 115 mg/dL (74-99); Non-African American GFR(CKD) >90 (>60 ml/min/1.73 sqM); Potassium 3.7 mmol/L (3.5-5.1); Sodium 137 mmol/L (137-145); Total Bilirubin 1.7 mg/dL (0.2-1.3); Total Protein 5.7 g/dL (6.3-8.2)
[2023-05-02] MEDS ORDERED: HYDROcodone/APAP 5-325MG 1 EACH TAB PO PRN (17:20)
--- NOTE | 2023-05-02 19:11 | XR ---
EXAMINATION TYPE: XR chest 1V portable DATE OF EXAM: 05/02/2023 7:03 PM COMPARISON: None TECHNIQUE: XR chest 1V portable Frontal view of the chest. CLINICAL INDICATION:Female, 77 years old with history of NGT placement; FINDINGS: Lungs/Pleura: There is no evidence of pleural effusion, focal consolidation, or pneumothorax. Pulmonary vascularity: Unremarkable. Heart/mediastinum: Cardiomediastinal silhouette is enlarged . Musculoskeletal: No acute osseous pathology. Other findings: None Lines/Tubes: Nasogastric tube with side-port in the mid thorax. Advancement of at least 17 cm recommended for opti mal placement. IMPRESSION: 1. Nasogastric tube with side-port in the mid thorax. Advancement of at least 17 cm recommended for optimal placement. 2. No evidence for acute process.
--- NOTE | 2023-05-02 21:45 | XR ---
EXAMINATION TYPE: XR chest 1V portable DATE OF EXAM: 05/02/2023 9:38 PM COMPARISON: Chest radiographs from same day TECHNIQUE: XR chest 1V portable Frontal view of the chest. CLINICAL INDICATION:Female, 77 years old with history of tube placement; FINDINGS: Lungs/Pleura: There is no evidence of pleural effusion, focal consolidation, or pneumothorax. Pulmonary vascularity: Unremarkable. Heart/mediastinum: Cardiomediastinal silhouette is unremarkable. Musculoskeletal: No acute osseous pathology. Nasogastric tube is now in appropriate position. IMPRESSION: Nasogastric tube now in appropriate position
[2023-05-03] MEDS: D5-0.45% NACL WITH KCL 20MEQ/L 1,000 ML IV SCH ×3 (00:05→19:54)
[2023-05-03] MEDS: PIPERACILLIN-TAZOBACTAM 3.375 GM in SODIUM CHLORIDE 0.9% 100 ML IVPB SCH ×4 (00:05→23:13)
[2023-05-03] MEDS: HEPARIN SODIUM,PORCINE/PF 5,000 UNIT/0.5 ML SYRINGE SQ SCH ×4 (00:08→23:13)
[2023-05-03] MEDS: ACETAMINOPHEN IV (For NPO) 1,000 MG in EMPTY BAG 1 BAG IVPB SCH ×4 (01:54→20:46)
[2023-05-03] MEDS: PANTOPRAZOLE 40 MG/10 ML VIAL IV SCH (08:33)
--- NOTE | 2023-05-03 09:37 | P.PN ---
Progress Note - Text Progress Note Date: 05/03/23 Patient appears clinically unchanged. She has minimal abdominal pain. She's had no flatus. On exam vital signs appear stable. Abdomen is soft incision is clean dry intact. Status post small bowel resection for strangulated internal hernia. Patient continue receive a nasogastric tube decompression. She has had no significant bowel function.
[2023-05-03 12:38] LABS: ALT 21 U/L (4-34); AST 31 U/L (14-36); African American GFR (CKD) >90 (>60 ml/min/1.73 sqM); Albumin 3.2 g/dL (3.5-5.0); Albumin/Globulin Ratio 1.1; Alkaline Phosphatase 82 U/L (38-126); Anion Gap 8 mmol/L; Blood Urea Nitrogen 8 mg/dL (7-17); Calcium 8.3 mg/dL (8.4-10.2); Carbon Dioxide 25 mmol/L (22-30); Chloride 105 mmol/L (98-107); Globulin 2.8 g/dL; Glucose 107 mg/dL (74-99); Non-African American GFR(CKD) 88 (>60 ml/min/1.73 sqM); Potassium 3.2 mmol/L (3.5-5.1); Sodium 138 mmol/L (137-145); Total Bilirubin 1.5 mg/dL (0.2-1.3)
[2023-05-03] MEDS: hydrALAZINE HCL 20 MG/ML 1 ML VIAL IVP PRN ×2 (14:20→19:56)
[2023-05-03] MEDS ORDERED: Potassium Replacement Protocol 1 EACH MISC MISCELLANE PRN (14:30)
[2023-05-03] MEDS: POTASSIUM CHLORIDE 10 MEQ in WATER FOR INJECTION 1 100ML.BAG IVPB SCH ×4 (15:42→21:44)
[2023-05-03] MEDS ORDERED: cloNIDine 0.1 MG/24HR PATCH TRANSDERM SCH (17:30)
--- NOTE | 2023-05-03 23:51 | P.PN ---
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, history of carotid artery stenosis presented to the emergency department with complaints of abdominal pain * Patient was seen by general surgery and had CT abdomen and pelvis done and of admission which showed findings compatible with small bowel obstruction, panc reatic head cystic lesion was noted as well * Blood was obtained at the time of admission included CBC which was essentially normal, serum chemistry obtained which showed normal electrolyte mild elevat ion of AST * Secondary to worsening abdominal pain patient was taken to surgery and had small bowel obstruction with ischemic small bowel secondary to internal herniation and a adhesive band * Medicine team was was consulted for postoperative management * Patient had a nasogastric tube in place which will be managed by general surgery, was advanced Tolerated per general surgery discretion * Post procedure patient receiving IV Zosyn to be continued will likely discontinue antibiotics if remains afebrile 05/02/2023 Patient is currently lying in bed. Awake alert and oriented. Status post exploratory laparotomy for internal hernia with bowel strangulation and small bowel resection.. Currently on room air. Blood pressure is elevated with SBP 180s this morning. Pulse 77 respiration 18 pulse ox 95% on room air. Patient is being continued on pain management and IV hydralazine as needed for SBP greater than 160s. Laboratory data showed WBC 9.3 hemoglobin 14.0 and platelets 173 Sodium 137 potassium 3.7 chloride 108 bicarb is 23 BUN 10 and creatinine 0.55 and total bilirubin level is 1.7 trending down. Current medications reviewed. Objective - Vital Signs Vital signs: Vital Signs Temp 98.6 F 05/02/23 13:52 Pulse 95 05/02/23 13:52 Resp 14 05/02/23 13:52 BP 171/97 05/02/23 13:52 Pulse Ox 95 05/02/23 13:52 FiO2 Intake & Output 05/02/23 05/02/23 05/03/23 06:59 18:59 06:59 Output Total 400 Balance -400 Output: Urine 400 Other: Voiding Method Toilet # Voids 3 7 - Exam PHYSICAL EXAMINATION: GENERAL: The patient is alert and oriented x3, not in any acute distress. Well developed, well nourished. Nasal gastric tube in place HEENT: Pupils are round and equally reacting to light. EOMI. No scleral icterus. No conjunctival pallor. Normocephalic, atraumatic. No pharyngeal erythema. No thyromegaly. CARDIOVASCULAR: S1 and S2 present. No murmurs, rubs, or gallops. PULMONARY: Chest is clear to auscultation, no wheezing or crackles. ABDOMEN: Soft, nontender, status post laparotomy incision bandage MUSCULOSKELETAL: No joint swelling or deformity. EXTREMITIES: No cyanosis, clubbing, or pedal edema. NEUROLOGICAL: Gross neurological examination did not reveal any focal deficits. SKIN: No rashes. - Labs CBC & Chem 7: 05/02/23 07:21 05/03/23 10:51 Labs: Abnormal Lab Results - Last 24 Hours (Table) 05/02/23 05/02/23 Range/Units 07:21 07:21 Neutrophils # 7.8 H (1.3-7.7) k/uL Chloride 108 H (98-107) mmol/L Glucose 115 H (74-99) mg/dL Calcium 8.1 L (8.4-10.2) mg/dL Total Bilirubin 1.7 H (0.2-1.3) mg/dL Total Protein 5.7 L (6.3-8.2) g/dL Albumin 3.1 L (3.5-5.0) g/dL Assessment and Plan Assessment: Assessment and plan Small bowel obstruction status post exploratory laparotomy Postoperative day 1 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 carotid artery disease uncontrolled Hypertension Hyperlipidemia In regards to bowel obstruction managed by general surgery status post surgery NG tube in place, diet and weight loss per general surgery discretion, postprocedure continue Zosyn however discontinue if afebrile when in the next 24-48 hours In regards to history of stroke patient on Plavix at home which is on hold while nothing by mouth once cleared by general surgery Plavix and with his In regards to hypertension and the ramipril and Coreg on hold while nothing by mouth, continue when necessary IV hydralazine In regards to her dyslipidemia Lipitor on hold CODE STATUS is full code Time with Patient: Greater than 30 Time with Patient: Greater than 30
--- NOTE | 2023-05-03 23:55 | P.PN ---
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, history of carotid artery stenosis presented to the emergency department with complaints of abdominal pain * Patient was seen by general surgery and had CT abdomen and pelvis done and of admission which showed findings compatible with small bowel obstruction, panc reatic head cystic lesion was noted as well * Blood was obtained at the time of admission included CBC which was essentially normal, serum chemistry obtained which showed normal electrolyte mild elevat ion of AST * Secondary to worsening abdominal pain patient was taken to surgery and had small bowel obstruction with ischemic small bowel secondary to internal herniation and a adhesive band * Medicine team was was consulted for postoperative management * Patient had a nasogastric tube in place which will be managed by general surgery, was advanced Tolerated per general surgery discretion * Post procedure patient receiving IV Zosyn to be continued will likely discontinue antibiotics if remains afebrile 05/02/2023 Patient is currently lying in bed. Awake alert and oriented. Status post exploratory laparotomy for internal hernia with bowel strangulation and small bowel resection.. Currently on room air. Blood pressure is elevated with SBP 180s this morning. Pulse 77 respiration 18 pulse ox 95% on room air. Patient is being continued on pain management and IV hydralazine as needed for SBP greater than 160s. Laboratory data showed WBC 9.3 hemoglobin 14.0 and platelets 173 Sodium 137 potassium 3.7 chloride 108 bicarb is 23 BUN 10 and creatinine 0.55 and total bilirubin level is 1.7 trending down. 05/03/2023 Patient is currently lying in the bed. Awake and alert. Complains of nausea. Abdominal pain is controlled with medications. Patient is being continued on NG tube for decompression. No passage of flatus. Blood pressure is still elevated. Catapres patch was applied and continue with hydralazine as needed. Patient currently nothing by mouth. Laboratory data showed potassium 3.2 which is being replaced. Sodium 138 potassium 3.2, chloride 105 bicarb is 25 BUN 18 creatinine 0.60 and blood sugar was 107 and total bilirubin level is improving to 1.5 today. Current medications reviewed. Objective - Vital Signs Vital signs: Vital Signs Temp 98.9 F 05/03/23 13:52 Pulse 85 05/03/23 16:58 Resp 18 05/03/23 13:52 BP 182/95 06/11/23 16:58 Pulse Ox 95 05/03/23 16:58 FiO2 Intake & Output 05/02/23 05/03/23 05/03/23 18:59 06:59 18:59 Intake Total 1800 Balance 1800 Intake: Intake, IV Titration 1800 Amount ACETAMINOPHEN IV (For NPO 200 ) 1,000 mg In Empty Bag 1 bag @ 400 mls/hr IVPB Q6H [facility] Rx#:[id number] D5-0.45% NaCl with KCl 1500 20Meq/l 1,000 ml @ 125 mls/hr IV .Q8H [facility] Rx#: [id number] Piperacillin-Tazobactam 3 100 .375 gm In Sodium Chloride 0.9% 100 ml @ 25 mls/hr IVPB Q8HR [facility] Rx# :[id number] Oral 0 Other: Voiding Method Toilet # Voids 7 4 11 - Exam PHYSICAL EXAMINATION: GENERAL: The patient is alert and oriented x3, not in any acute distress. Well developed, well nourished. Nasal gastric tube in place HEENT: Pupils are round and equally reacting to light. EOMI. No scleral icterus. No conjunctival pallor. Normocephalic, atraumatic. No pharyngeal erythema. No thyromegaly. CARDIOVASCULAR: S1 and S2 present. No murmurs, rubs, or gallops. PULMONARY: Chest is clear to auscultation, no wheezing or crackles. ABDOMEN: Soft, nontender, status post laparotomy incision bandage MUSCULOSKELETAL: No joint swelling or deformity. EXTREMITIES: No cyanosis, clubbing, or pedal edema. NEUROLOGICAL: Gross neurological examination did not reveal any focal deficits. SKIN: No rashes. - Labs CBC & Chem 7: 05/02/23 07:21 05/03/23 10:51 Labs: Abnormal Lab Results - Last 24 Hours (Table) 05/03/23 Range/Units 10:51 Potassium 3.2 L (3.5-5.1) mmol/L Glucose 107 H (74-99) mg/dL Calcium 8.3 L (8.4-10.2) mg/dL Total Bilirubin 1.5 H (0.2-1.3) mg/dL Total Protein 6.0 L (6.3-8.2) g/dL Albumin 3.2 L (3.5-5.0) g/dL Assessment and Plan Assessment: Assessment and plan Small bowel obstruction status post exploratory laparotomy Postoperative day 2 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 carotid artery disease uncontrolled Hypertension Hyperlipidemia In regards to bowel obstruction managed by general surgery status post surgery NG tube in place, diet and weight loss per general surgery discretion, postprocedure continue Zosyn however discontinue if afebrile when in the next 24-48 hours In regards to history of stroke patient on Plavix at home which is on hold while nothing by mouth once cleared by general surgery Plavix and with his In regards to hypertension and the ramipril and Coreg on hold while nothing by mouth, continue when necessary IV hydralazine In regards to her dyslipidemia Lipitor on hold CODE STATUS is full code Time with Patient: Greater than 30 Time with Patient: Greater than 30
[2023-05-04] MEDS: ACETAMINOPHEN IV (For NPO) 1,000 MG in EMPTY BAG 1 BAG IVPB SCH ×4 (01:26→19:28)
[2023-05-04] MEDS: D5-0.45% NACL WITH KCL 20MEQ/L 1,000 ML IV SCH ×3 (01:52→15:59)
[2023-05-04] MEDS: PIPERACILLIN-TAZOBACTAM 3.375 GM in SODIUM CHLORIDE 0.9% 100 ML IVPB SCH ×2 (07:51→15:59)
[2023-05-04] MEDS: HEPARIN SODIUM,PORCINE/PF 5,000 UNIT/0.5 ML SYRINGE SQ SCH ×2 (07:51→15:59)
[2023-05-04] MEDS: PANTOPRAZOLE 40 MG/10 ML VIAL IV SCH (07:51)
[2023-05-04 08:08] LABS: Basophils % (A) 0 %; Eosinophils # (A) 0.1 k/uL (0-0.7); Eosinophils % (A) 2 %; HCT 38.5 % (34.0-46.0); HGB 12.8 gm/dL (11.4-16.0); Lymphocytes # (A) 1.1 k/uL (1.0-4.8); Lymphocytes % (A) 21 %; MCH 31.3 pg (25.0-35.0); MCHC 33.4 g/dL (31.0-37.0); MCV 93.8 fL (80.0-100.0); Mean Platelet Volume 8.8; Monocytes # (A) 0.4 k/uL (0-1.0); Monocytes % (A) 7 %; Neutrophils # (A) 3.4 k/uL (1.3-7.7); Neutrophils % (A) 68 %; Platelet Count 179 k/uL (150-450)
[2023-05-04 08:24] LABS: African American GFR (CKD) >90 (>60 ml/min/1.73 sqM); Anion Gap 4 mmol/L; Blood Urea Nitrogen 8 mg/dL (7-17); Carbon Dioxide 26 mmol/L (22-30); Chloride 108 mmol/L (98-107); Glucose 113 mg/dL (74-99); Non-African American GFR(CKD) 88 (>60 ml/min/1.73 sqM); Potassium 3.3 mmol/L (3.5-5.1); Sodium 138 mmol/L (137-145)
[2023-05-04 13:25] VITALS: BMI 27.4
[2023-05-04] MEDS: hydrALAZINE HCL 20 MG/ML 1 ML VIAL IVP PRN (14:04)
--- NOTE | 2023-05-04 14:21 | CDI ---
Documentation Clarification Form Date: 05/04/2023 From: Thelma Kaur Phone: [phone] Admit Date: 04/30/2023 10:37:00 PM Patient Name: Any Thomas Visit Number: [id number] ATTENTION: The Clinical Documentation Specialists (CDI) and [facility] Coding Staff appreciate your assistance in clarifying documentation. Please respond to the clarification below the line at the bottom and electronically sign. The CDI & [facility] Coding staff will review the response and follow-up if needed. Please note: Queries are made part of the Legal Health Record. If you have any questions, please contact the author of this message via ITS. Dr. Chucky Robertson There is documentation of ischemic bowel in the op note on 04/30. Additional clarification is requested. History/Risk Factors: 77yo with a history of previous hysterectomy presented with abd pain, chills, nausea and vomiting. Clinical Indicators: We had a length of small bowel that was ischemic and required resection measuring about 2 feet in length per op note on 05/01. Also, the postop diagnosis for the exp lap on 05/01 was, small bowel obstruction with ischemic small bowel secondary to internal herniation and adhesive band. Treatment: Pt underwent an exploratory laparotomy, lysis of adhesions and small bowel resection on 05/01. Can you please clarify the acuity of the ischemic bowel? [ X ] Acute ischemic bowel [ ] Other, please specify [ ] Unable to determine (Template Last Revised: January 2021) MTDD
--- NOTE | 2023-05-04 16:01 | P.PN ---
Subjective Progress Note Date: 05/04/23 Principal diagnosis: Small bowel obstruction Patient doing well today. She started to have bowel movements earlier. Denies nausea or vomiting. Tolerating clear liquids. Pain is well-controlled. Objective - Vital Signs Vital signs: Vital Signs Temp 98.6 F 05/04/23 13:53 Pulse 73 05/04/23 13:53 Resp 19 05/04/23 13:53 BP 186/99 05/04/23 13:53 Pulse Ox 96 05/04/23 13:53 FiO2 Intake & Output 05/03/23 05/04/23 05/04/23 18:59 06:59 18:59 Intake Total 1700 Balance 1700 Weight 74.843 kg Intake: Intake, IV Titration 1700 Amount ACETAMINOPHEN IV (For NPO 300 ) 1,000 mg In Empty Bag 1 bag @ 400 mls/hr IVPB Q6H [facility] Rx#:[id number] D5-0.45% NaCl with KCl 1200 20Meq/l 1,000 ml @ 125 mls/hr IV .Q8H [facility] Rx#: [id number] Piperacillin-Tazobactam 3 100 .375 gm In Sodium Chloride 0.9% 100 ml @ 25 mls/hr IVPB Q8HR [facility] Rx# :[id number] Potassium Chloride 10 meq 100 In Water For Injection 1 100ml.bag @ 100 mls/hr IVPB Q1HR [facility] Rx#: [id number] Other: # Voids 11 6 - Exam Abdomen: Soft, nondistended, mild incisional tenderness, dressing clean and dry - Labs CBC & Chem 7: 05/04/23 07:20 05/04/23 07:20 Labs: Abnormal Lab Results - Last 24 Hours (Table) 05/04/23 Range/Units 07:20 Potassium 3.3 L (3.5-5.1) mmol/L Chloride 108 H (98-107) mmol/L Glucose 113 H (74-99) mg/dL Calcium 8.0 L (8.4-10.2) mg/dL Assessment and Plan (1) Small bowel obstruction Narrative/Plan: Patient doing well at this time. Advance diet to full liquids. Ambulate. Probable discharge tomorrow. Current Visit: Yes Status: Acute Code(s): K56.609 - UNSP INTESTNL OBST, UNSP TO PARTIAL VERSUS COMPLETE OBST SNOMED Code(s): 538697525
[2023-05-04] MEDS ORDERED: lisinopriL 20 MG TAB PO STA (16:42)
[2023-05-04] MEDS ORDERED: carvediloL 12.5 MG TAB PO STA (16:42)
[2023-05-04] MEDS: carvediloL 12.5 MG TAB PO SCH (20:04)
[2023-05-04] MEDS: lisinopriL 20 MG TAB PO SCH (20:04)
[2023-05-04] MEDS ORDERED: SODIUM CHLORIDE 0.9% 500 ML 500 ML IV ONE (22:36)
--- NOTE | 2023-05-04 22:44 | P.PN ---
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, history of carotid artery stenosis presented to the emergency department with complaints of abdominal pain * Patient was seen by general surgery and had CT abdomen and pelvis done and of admission which showed findings compatible with small bowel obstruction, panc reatic head cystic lesion was noted as well * Blood was obtained at the time of admission included CBC which was essentially normal, serum chemistry obtained which showed normal electrolyte mild elevat ion of AST * Secondary to worsening abdominal pain patient was taken to surgery and had small bowel obstruction with ischemic small bowel secondary to internal herniation and a adhesive band * Medicine team was was consulted for postoperative management * Patient had a nasogastric tube in place which will be managed by general surgery, was advanced Tolerated per general surgery discretion * Post procedure patient receiving IV Zosyn to be continued will likely discontinue antibiotics if remains afebrile 05/02/2023 Patient is currently lying in bed. Awake alert and oriented. Status post exploratory laparotomy for internal hernia with bowel strangulation and small bowel resection.. Currently on room air. Blood pressure is elevated with SBP 180s this morning. Pulse 77 respiration 18 pulse ox 95% on room air. Patient is being continued on pain management and IV hydralazine as needed for SBP greater than 160s. Laboratory data showed WBC 9.3 hemoglobin 14.0 and platelets 173 Sodium 137 potassium 3.7 chloride 108 bicarb is 23 BUN 10 and creatinine 0.55 and total bilirubin level is 1.7 trending down. 05/03/2023 Patient is currently lying in the bed. Awake and alert. Complains of nausea. Abdominal pain is controlled with medications. Patient is being continued on NG tube for decompression. No passage of flatus. Blood pressure is still elevated. Catapres patch was applied and continue with hydralazine as needed. Patient currently nothing by mouth. Laboratory data showed potassium 3.2 which is being replaced. Sodium 138 potassium 3.2, chloride 105 bicarb is 25 BUN 18 creatinine 0.60 and blood sugar was 107 and total bilirubin level is improving to 1.5 today. 05/04/2023 Patient is currently sitting in the chair. Awake alert and oriented x3. Abdominal pain is controlled with pain medications. NG tube has been discontinued. Patient was started on clear liquids. Blood pressure is still elevated with SBP 180s this morning. Patient will be started back on her home medications including Coreg and ramipril. IV pain medications and Catapres patch will be discontinued. Denies any complaints of headache or dizziness or lightheadedness. No complaints of chest pain or shortness of breath. Laboratory data showed sodium 138 potassium 3.3 chloride 108 bicarb is 26 BUN 18 creatinine 0.63. Patient is on D5 half-normal with KCl at 125 cc/h.. Current medications reviewed. Objective - Vital Signs Vital signs: Vital Signs Temp 98.6 F 05/04/23 13:53 Pulse 73 05/04/23 13:53 Resp 19 05/04/23 13:53 BP 178/92 05/04/23 16:02 Pulse Ox 96 05/04/23 13:53 FiO2 Intake & Output 05/03/23 05/04/23 05/04/23 18:59 06:59 18:59 Intake Total 1700 118 Balance 1700 118 Weight 74.843 kg Intake: Intake, IV Titration 1700 Amount ACETAMINOPHEN IV (For NPO 300 ) 1,000 mg In Empty Bag 1 bag @ 400 mls/hr IVPB Q6H [facility] Rx#:[id number] D5-0.45% NaCl with KCl 1200 20Meq/l 1,000 ml @ 125 mls/hr IV .Q8H [facility] Rx#: [id number] Piperacillin-Tazobactam 3 100 .375 gm In Sodium Chloride 0.9% 100 ml @ 25 mls/hr IVPB Q8HR [facility] Rx# :[id number] Potassium Chloride 10 meq 100 In Water For Injection 1 100ml.bag @ 100 mls/hr IVPB Q1HR [facility] Rx#: [id number] Oral 118 Other: # Voids 11 6 2 # Bowel Movements 1 - Exam PHYSICAL EXAMINATION: GENERAL: The patient is alert and oriented x3, not in any acute distress. Well developed, well nourished. HEENT: Pupils are round and equally reacting to light. EOMI. No scleral icterus. No conjunctival pallor. Normocephalic, atraumatic. No pharyngeal erythema. No thyromegaly. CARDIOVASCULAR: S1 and S2 present. No murmurs, rubs, or gallops. PULMONARY: Chest is clear to auscultation, no wheezing or crackles. ABDOMEN: Soft, nontender, status post laparotomy incision bandage MUSCULOSKELETAL: No joint swelling or deformity. EXTREMITIES: No cyanosis, clubbing, or pedal edema. NEUROLOGICAL: Gross neurological examination did not reveal any focal deficits. SKIN: No rashes. - Labs CBC & Chem 7: 05/04/23 07:20 05/04/23 07:20 Labs: Abnormal Lab Results - Last 24 Hours (Table) 05/04/23 Range/Units 07:20 Potassium 3.3 L (3.5-5.1) mmol/L Chloride 108 H (98-107) mmol/L Glucose 113 H (74-99) mg/dL Calcium 8.0 L (8.4-10.2) mg/dL Assessment and Plan Assessment: Assessment and plan Small bowel obstruction status post exploratory laparotomy Postoperative day 3 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 carotid artery disease uncontrolled Hypertension Hyperlipidemia NG tube has been discontinued by general surgeryand patient was started on clear liquids. Advance as tolerated. In regards to history of stroke patient on Plavix at home which is on hold while nothing by mouth once cleared by general surgery Plavix and with his Patient will be started back on her home medications including Coreg and ramipril. IV pain medications and Catapres patch will be discontinued. In regards to her dyslipidemia Lipitor on hold CODE STATUS is full code Time with Patient: Greater than 30 Time with Patient: Greater than 30
[2023-05-05] MEDS: HEPARIN SODIUM,PORCINE/PF 5,000 UNIT/0.5 ML SYRINGE SQ SCH ×2 (00:19→08:55)
[2023-05-05] MEDS: PIPERACILLIN-TAZOBACTAM 3.375 GM in SODIUM CHLORIDE 0.9% 100 ML IVPB SCH ×2 (00:44→08:53)
[2023-05-05] MEDS: D5-0.45% NACL WITH KCL 20MEQ/L 1,000 ML IV SCH (01:37)
[2023-05-05] MEDS: ACETAMINOPHEN IV (For NPO) 1,000 MG in EMPTY BAG 1 BAG IVPB SCH ×3 (01:37→13:50)
[2023-05-05 06:23] LABS: Basophils % (A) 0 %; Eosinophils # (A) 0.2 k/uL (0-0.7); Eosinophils % (A) 5 %; HCT 36.8 % (34.0-46.0); HGB 12.1 gm/dL (11.4-16.0); Lymphocytes % (A) 26 %; MCH 31.1 pg (25.0-35.0); MCHC 32.9 g/dL (31.0-37.0); MCV 94.5 fL (80.0-100.0); Monocytes # (A) 0.4 k/uL (0-1.0); Monocytes % (A) 9 %; Neutrophils # (A) 2.3 k/uL (1.3-7.7); Neutrophils % (A) 58 %; Platelet Count 183 k/uL (150-450); RBC 3.89 m/uL (3.80-5.40); RDW 12.9 % (11.5-15.5)
[2023-05-05 06:35] LABS: African American GFR (CKD) >90 (>60 ml/min/1.73 sqM); Anion Gap 4 mmol/L; Blood Urea Nitrogen 7 mg/dL (7-17); Calcium 8.2 mg/dL (8.4-10.2); Carbon Dioxide 24 mmol/L (22-30); Chloride 111 mmol/L (98-107); Glucose 121 mg/dL (74-99); Non-African American GFR(CKD) 89 (>60 ml/min/1.73 sqM); Potassium 3.3 mmol/L (3.5-5.1); Sodium 139 mmol/L (137-145)
[2023-05-05] MEDS ORDERED: POTASSIUM CHLORIDE ER 20 MEQ TAB.ER PO STA (08:23)
[2023-05-05] MEDS: carvediloL 12.5 MG TAB PO SCH (08:54)
[2023-05-05] MEDS: lisinopriL 20 MG TAB PO SCH (08:55)
[2023-05-05] MEDS: PANTOPRAZOLE 40 MG/10 ML VIAL IV SCH (08:56)
[2023-05-05] MEDS ORDERED: MAGNESIUM OXIDE 400 MG TAB PO SCH (09:00)
[2023-05-05] MEDS ORDERED: VITAMIN E (DL,TOCOPHERYL ACET) 400 UNIT (180 MG) CAP PO SCH (09:00)
[2023-05-05] MEDS ORDERED: NON FORMULARY DRUG (Omega-3 Fatty Acids [Omega-3] 1,000 MG Capsule) PO SCH (09:00)
[2023-05-05] MEDS ORDERED: CHOLECALCIFEROL 25 MCG (1000 IU) TABLET PO SCH (09:00)
[2023-05-05] MEDS ORDERED: ATORVASTATIN 40 MG TAB PO SCH (09:00)
[2023-05-05] MEDS ORDERED: MULTIVITAMINS, THERA 1 EACH TAB PO SCH (09:00)
[2023-05-05] MEDS ORDERED: Magnesium Replacement Protocol 1 EACH MISC MISCELLANE PRN (09:24)
[2023-05-05] MEDS ORDERED: MAGNESIUM SULFATE-D5W PMX 1 GM in DEXTROSE/WATER 1 100ML.BAG IVPB ONE (09:30)
[2023-05-05] MEDS ORDERED: CLOPIDOGREL 75 MG TAB PO SCH (11:15)
--- NOTE | 2023-05-05 14:04 | P.DS ---
Providers Date of admission: 04/30/23 22:37 Expected date of discharge: 05/05/23 Attending physician: Chucky Robertson Consults: 05/01/23 01:25 Consult Physician Routine Consulting Provider: Brii Marley Consult Reason/Comments: Medical management Do you want consulting provider notified?: Yes Primary care physician: Physician Nonstaff Hospital Course: Discharge diagnosis 1. Small bowel obstruction with ischemic small bowel secondary to internal herniation and adhesive band status post exploratory laparotomy, lysis of adhesions and small bowel resection. Hospital course This is a 77-year-old female who presented last with complaints of abdominal pain with nausea and vomiting. CAT scan abdomen and pelvis was obtained which demonstrates small bowel obstruction with edema of the small bowel mesentery extending into the right lower quadrant suspicious for internal herniation with vascular compromise. Patient is status post Exploratory laparotomy, lysis of adhesions and small bowel resection for Small bowel obstruction with ischemic small bowel secondary to internal herniation and adhesive band. Patient is tolerating diet. She is having bowel movements. She has been up and ambulating. She's afebrile. Her pain is controlled. She is stable for discharge. Physician S[employer] Developer note has been reviewed by physician. Signing provider agrees with the documented findings, assessment, and plan of care. Patient Condition at Discharge: Stable Plan - Discharge Summary Discharge Rx Participant: No New Discharge Prescriptions: New HYDROcodone/APAP 5-325MG [[place] 5-325] 1 tab PO Q6HR PRN 2 Days #8 tab PRN Reason: Pain Continue [place]-3 Fatty Acids [[place]-3] 1,000 mg PO DAILY Multivitamins, Thera [Multivitamin (formulary)] 1 tab PO DAILY Magnesium 250 mg PO DAILY ramipriL [Altace] 10 mg PO BID Clopidogrel [Plavix] 75 mg PO DAILY Vitamin E (Dl,Tocopheryl Acet) [Vitamin E (400 Iu = 180 mg)] 400 unit PO DAILY Cholecalciferol [Vitamin D3 (25 Mcg = 1000 Iu)] 25 mcg PO DAILY carvediloL [Coreg*] 12.5 mg PO BID Atorvastatin [Lipitor] 40 mg PO DAILY Discharge Medication List Atorvastatin [Lipitor] 40 mg PO DAILY 04/30/23 [History] Cholecalciferol [Vitamin D3 (25 Mcg = 1000 Iu)] 25 mcg PO DAILY 04/30/23 [History] Clopidogrel [Plavix] 75 mg PO DAILY 04/30/23 [History] Magnesium 250 mg PO DAILY 04/30/23 [History] Multivitamins, Thera [Multivitamin (formulary)] 1 tab PO DAILY 04/30/23 [History] [place]-3 Fatty Acids [[place]-3] 1,000 mg PO DAILY 04/30/23 [History] Vitamin E (Dl,Tocopheryl Acet) [Vitamin E (400 Iu = 180 mg)] 400 unit PO DAILY 04/30/23 [History] carvediloL [Coreg*] 12.5 mg PO BID 04/30/23 [History] ramipriL [Altace] 10 mg PO BID 04/30/23 [History] HYDROcodone/APAP 5-325MG [[place] 5-325] 1 tab PO Q6HR PRN 2 Days #8 tab 05/05/23 [Rx] Follow up Appointment(s)/Referral(s): Chucky Robertson MD [Medical Doctor] - 05/14/23 9:30 am Gilmar Joshi MD [Medical Doctor] - 1 Week (call office when discharged to set up appointment ) Nonstaff,Physician [Primary Care Provider] - 1-2 days Activity/Diet/Wound Care/Special Instructions: No driving while taking [place] No lifting over 10 pounds You may shower. No soaking or tub baths for 2 weeks Very light activity until you are reevaluated at your follow up appointment with your surgeon Discharge Disposition: HOME SELF-CARE
[2023-05-05 14:26] VITALS: BP 168/82; PULSE 64; RESP 17; TEMP 98.5
== END 2023-05-05 15:20 | disposition home or self-care (01) | DRG 329 ==
LOC: EC 18:04 → SUPCPDRO 18:04 → 4SSUR 22:37
PROVIDERS: ADMIT Surgery; ATTEND Surgery
PROC: 0DB80ZZ Excision of Small Intestine, Open Approach (ICD-10-PCS; principal; 2023-05-01 00:01)
PROC: 0DN80ZZ Release Small Intestine, Open Approach (ICD-10-PCS; principal; 2023-05-01 00:01)
DX: K46.0 Unspecified abdominal hernia with obstruction, without gangrene (principal); K55.019 Acute (reversible) ischemia of small intestine, extent unspecified; K86.2 Cyst of pancreas; K91.30 Postprocedural intestinal obstruction, unspecified as to partial versus complete; Y83.8 Other surgical procedures as the cause of abnormal reaction of the patient, or of later complication, without mention of misadventure at the time of the procedure; I25.10 Atherosclerotic heart disease of native coronary artery without angina pectoris; I10 Essential (primary) hypertension; E78.5 Hyperlipidemia, unspecified; Z20.822 Contact with and (suspected) exposure to COVID-19; I69.398 Other sequelae of cerebral infarction; H54.61 Unqualified visual loss, right eye, normal vision left eye; Z79.899 Other long term (current) drug therapy; Z79.02 Long term (current) use of antithrombotics/antiplatelets; Z28.310 Unvaccinated for COVID-19; Z71.3 Dietary counseling and surveillance; Z86.010 Personal history of colon polyps
CPT/HCPCS: 36415; 71045; 74177; 80048; 80053; 81001; 83605; 83690; 83735; 85025; 85610; 85730; 86850; 86900; 86901; 87636; 88309; 88341; 88342; 96361; 96374; 96375; 96376; 99285